=== PATIENT | male | born 2000 | race Two or more races ===

== ENCOUNTER 2021-01-24 22:05 | Emergency (ER) | payer BC, OTHER ==
[~2021-01-24] VITALS: Ht 170.2 cm; Wt 92.4 kg
[~2021-01-24 22:05] MED LIST: LAMO100T63 PO; OLAN5TAB3 PO; SERT100T PO
--- NOTE | 2021-01-24 22:34 | NUR ---
Father at bedside, Melissa, student recruiter performing blood draw. Pt made aware of psych/SI process. Will begin changing shortly.
[2021-01-24 22:48] LABS: BASOPHILS % (AUTO) 1 % (0-1); EOSINOPHILS % (AUTO) 0 % (1-7); LYMPHOCYTES % (AUTO) 25 % (22-44); MEAN CORPUSCULAR HEMOGLOBIN 29.6 pg (27.5-34.5); MEAN CORPUSCULAR HGB CONC 34.5 g/dL (33.2-36.2); MEAN PLATELET VOLUME 9.3 fL (7.4-10.4); MONOCYTES % (AUTO) 11 % (2-9); NEUTROPHILS % (AUTO) 63 % (42-75); PLATELET COUNT 206 x10^3/uL (130-400); RED BLOOD COUNT 4.48 x10^6/uL (4.38-5.82); RED CELL DISTRIBUTION WIDTH 14.1 % (9.4-14.8)
--- NOTE | 2021-01-24 22:52 | NUR ---
Belongings secured w/ father. Father plans on taking belongings home. pt calm and cooperative. GCS 15. Endorses SI w/ plan to OD on medications. prior attempts. Recent hospitilization for SI and admission to 4th floor. Since being discharged home, has been having overwhelming thoughts of hurting himself with plan to overdose on medications. Pt takes Lamotrigine, Olanzapine, and Sertraline. Does not endorse any stressors. Denies HI. Denies drug or alcohol use. Father and pt both good historians. Father supportive. Father st pt has no known medical problems/diagnoses but has psych hx. 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 Pt has not finished high school yet. Pt provided with PO fluids, tolerated well. Watching tv, room locked and secured. Garage doors down. Father remains at bedside. Pt aware that he needs to provide urine sample when able. Cup provided. Denies further needs at this time.
[2021-01-24 22:53] LABS: ALBUMIN 3.7 g/dL (3.4-5.0); ANION GAP 5 mmol/L (5-15); CALCIUM 8.7 mg/dL (8.5-10.1); CHLORIDE 107 mmol/L (98-107)
[2021-01-24 23:02] LABS: SALICYLATE LEVEL < 1.7 mg/dL (2.8-20.0)
[2021-01-24 23:04] LABS: ALANINE AMINOTRANSFERASE 33 U/L (12-78); ALKALINE PHOSPHATASE 95 U/L (45-117); BILIRUBIN,TOTAL 0.3 mg/dL (0.2-1.0); CREATININE 1.01 mg/dL (0.7-1.3); TOTAL PROTEIN 7.2 g/dL (6.4-8.2)
[2021-01-24 23:18] LABS: FREE T4 (FREE THYROXINE) 0.87 ng/dL (0.76-1.46)
[2021-01-24 23:25] LABS: AMPHETAMINE SCREEN, URINE Negative (Negative); BARBITURATE SCREEN, URINE Negative (Negative); BENZODIAZEPINE SCREEN, URINE Negative (Negative); CANNABINOID SCREEN, URINE Negative (Negative); COCAINE SCREEN, URINE Negative (Negative); METHADONE SCREEN, URINE Negative (Negative); OPIATE SCREEN, URINE Negative (Negative)
--- NOTE | 2021-01-25 01:02 | NUR ---
BREAK RN: DR TY IN ROOM UPDATING PATIENT AND FATHER.
--- NOTE | 2021-01-25 01:28 | NUR ---
REPORT GIVEN TO TAMARA MOORE
--- NOTE | 2021-01-25 02:24 | NUR ---
Pt resting comfortably at this time. Sitter at bedside. Room secured. All belongings were taken home w/ pts father.
--- NOTE | 2021-01-25 02:35 | NUR ---
[facility] DID NOT FAX TO [facility] DUE TO THEM NOT ACCEPTING PTS
--- NOTE | 2021-01-25 03:30 | NUR ---
Pt sleeping comfortably at this time, denies needs. Sitter in clear line of sight of patient. Room secured. garage doors down.
--- NOTE | 2021-01-25 04:30 | NUR ---
Pt sleeping comfortably at this time, denies needs. Sitter in clear line of sight of patient. Room secured. garage doors down.
--- NOTE | 2021-01-25 05:30 | NUR ---
Pt sleeping comfortably at this time, denies needs. Sitter in clear line of sight of patient. Room secured. garage doors down.
[2021-01-25 06:28] VITALS: BP 118/70
--- NOTE | 2021-01-25 06:29 | NUR ---
Pt sleeping comfortably at this time, denies needs. Sitter in clear line of sight of patient. Room secured. garage doors down.
--- NOTE | 2021-01-25 06:42 | NUR ---
[facility] calling stated they may take this patient. They are verifying insurance for acceptance
--- NOTE | 2021-01-25 06:47 | NUR ---
[facility]) ACCEPTING DR. PARRY
--- NOTE | 2021-01-25 06:57 | NUR ---
Report given to Cleo at [facility], all questions answered. Care handoff to TAMARA Ortega
--- NOTE | 2021-01-25 06:59 | NUR ---
REPORT FROM TAM[facility] MOORE. [facility]
--- NOTE | 2021-01-25 10:42 | NUR ---
PT AND PT'S DAD UPDATED ON POC OF TRANSFER TO [facility]. PT AND DAD AGREEABLE TO PLAN. PT RESTING IN [facility], WITHIN LINE OF SIGHT OF SITTER, PT STATES NO COMPLAINTS.
== END 2021-01-25 12:13 ==
LOC: ED 23:09 → INTOOBSV 23:37 → EDIP 23:37 → UNDOADMOB 23:37 → EDIP 23:37 → ED 01-25 12:13
DX: R45.851 Suicidal ideations (principal); F32.9 Major depressive disorder, single episode, unspecified; R25.9 Unspecified abnormal involuntary movements
CPT/HCPCS: 36415; 80053; 80299; 80307; 80320; 80329; 84439; 84443; 85025; 99285; G0480